=== PATIENT | male | born 1960 | race Caucasian/White ===

== ENCOUNTER 2016-11-23 18:30 | Emergency (ER) | payer OTHER | END 2016-11-23 20:28 | disposition home or self-care (01) | LOC: ER 18:30 | DX: M54.5 Low back pain (principal); B02.9 Zoster without complications; I10 Essential (primary) hypertension; E78.00 Pure hypercholesterolemia, unspecified; F17.210 Nicotine dependence, cigarettes, uncomplicated; Z79.899 Other long term (current) drug therapy | CPT/HCPCS: 96372; J1100 ==

== ENCOUNTER 2016-12-12 17:52 | Emergency (ER) | payer OTHER | END 2016-12-12 20:37 | disposition home or self-care (01) | LOC: ER 17:52 | DX: R30.0 Dysuria (principal); I10 Essential (primary) hypertension; I25.2 Old myocardial infarction; K21.9 Gastro-esophageal reflux disease without esophagitis; E78.5 Hyperlipidemia, unspecified; F17.210 Nicotine dependence, cigarettes, uncomplicated; Z95.5 Presence of coronary angioplasty implant and graft; Z90.49 Acquired absence of other specified parts of digestive tract; Z79.899 Other long term (current) drug therapy | CPT/HCPCS: 36415 ==